=== PATIENT | female | born 1955 | race Caucasian/White ===

== ENCOUNTER 2019-08-13 10:45 | Emergency (ER) | payer OTHER ==
[~2019-08-13] VITALS: Ht 154.9 cm; Wt 69.4 kg
[2019-08-13] MEDS ORDERED: POLYMYXIN B/TMP10 ML OPHTHALMIC (11:03)
[2019-08-13 11:13] VITALS: BP 147/87
== END 2019-08-13 11:14 | disposition home or self-care (01) ==
LOC: M.ERS 10:45
DX: H10.9 Unspecified conjunctivitis (principal)